=== PATIENT | female | born 1965 | race African-American/Black ===

== ENCOUNTER 2017-12-19 22:12 | Emergency (ER) | payer OTHER ==
[~2017-12-19] VITALS: Ht 177.8 cm; Wt 110.7 kg
[2017-12-19] MEDS ORDERED: TRAMADOL 50 MG50 MG PO (22:55)
[2017-12-19] MEDS ORDERED: OMEPRAZOLE 20 M20 M1 PO (22:56)
[2017-12-19] MEDS ORDERED: FLEXERIL PO (22:56)
[2017-12-19] MEDS ORDERED: LISINOPRIL10 MG PO (22:56)
[2017-12-19] MEDS ORDERED: PLAVIX 75 MG TA75 M1 PO (22:56)
[2017-12-19] MEDS ORDERED: LIPITOR10 MG PO (22:57)
[2017-12-19] MEDS ORDERED: CYCLOBENZAPRINE5 MG PO (23:39)
[2017-12-19] MEDS ORDERED: ULTRAM 50MG TAB50 MG PO (23:39)
[2017-12-20 00:10] VITALS: BP 169/99
== END 2017-12-20 00:10 | disposition home or self-care (01) ==
LOC: ER 22:12
DX: S46.091A Other injury of muscle(s) and tendon(s) of the rotator cuff of right shoulder, initial encounter (principal); F17.210 Nicotine dependence, cigarettes, uncomplicated; W51.XXXA Accidental striking against or bumped into by another person, initial encounter; Y93.89 Activity, other specified; Y92.89 Other specified places as the place of occurrence of the external cause; Y99.8 Other external cause status